=== PATIENT | female | born 1960 | race Caucasian/White ===

== ENCOUNTER 2017-05-11 09:36 | Emergency (ER) | payer OTHER ==
[~2017-05-11] VITALS: Ht 157.5 cm; Wt 85.9 kg
[~2017-05-11 09:36] MED LIST: PRAV10TA39 PO
[2017-05-11 11:15] VITALS: BP 106/82
[2017-05-11] MEDS ORDERED: AMOXICILLIN TRIHYDRATE 250 MG CAPSULE PO ONE (11:30)
== END 2017-05-11 11:37 | disposition home or self-care (01) ==
LOC: EMS 09:38
DX: H66.92 Otitis media, unspecified, left ear (principal); R42 Dizziness and giddiness; E78.00 Pure hypercholesterolemia, unspecified
CPT/HCPCS: 99283

== ENCOUNTER 2017-10-04 12:08 | Emergency (ER) | payer OTHER ==
[~2017-10-04] VITALS: Ht 157.5 cm; Wt 87.7 kg
[2017-10-04] MEDS ORDERED: IBUPROFEN 800 MG TABLET PO ONE (17:15)
[2017-10-04] MEDS ORDERED: LIDOCAINE HCL/PF 1% 2 ML VIAL IM ONE (18:15)
[2017-10-04] MEDS ORDERED: CefTRIAXone SODIUM 1 GM/VIAL IM ONE (18:15)
[2017-10-04 19:15] VITALS: BP 124/83
== END 2017-10-04 19:15 | disposition home or self-care (01) ==
LOC: EMS 12:09
DX: L03.011 Cellulitis of right finger (principal); E78.00 Pure hypercholesterolemia, unspecified
CPT/HCPCS: 73130; 96372; 99284; J0696; J3490

== ENCOUNTER 2020-10-23 17:26 | Emergency (ER) | payer OTHER ==
[~2020-10-23] VITALS: Ht 157.5 cm; Wt 72.7 kg
[2020-10-23 17:31] VITALS: BP 136/60
[2020-10-23] MEDS ORDERED: LIDOCAINE 5% TRANSDERMAL PATCH TD ONE (19:45)
== END 2020-10-23 20:19 | disposition home or self-care (01) ==
LOC: EMS 17:28
DX: M62.838 Other muscle spasm (principal); E78.00 Pure hypercholesterolemia, unspecified
CPT/HCPCS: 99283

== ENCOUNTER 2021-04-02 18:17 | Emergency (ER) | payer OTHER ==
[~2021-04-02] VITALS: Ht 160 cm; Wt 72.7 kg
[2021-04-02] MEDS ORDERED: MECL-186 PO (18:21)
[2021-04-02 20:03] VITALS: BP 138/71
== END 2021-04-02 21:06 | disposition home or self-care (01) ==
LOC: EMS 18:17
DX: H66.92 Otitis media, unspecified, left ear (principal); M62.838 Other muscle spasm
CPT/HCPCS: 99283

== ENCOUNTER 2021-04-29 17:38 | Emergency (ER) | payer OTHER ==
[~2021-04-29] VITALS: Ht 160 cm; Wt 95.5 kg
[~2021-04-29 17:38] MED LIST changes: +MECL-186 PO
[2021-04-29] MEDS ORDERED: ATOR20TA86 PO (18:11)
[2021-04-29 19:40] VITALS: BP 137/62
== END 2021-04-29 19:54 | disposition home or self-care (01) ==
LOC: EMS 17:48
DX: S93.401A Sprain of unspecified ligament of right ankle, initial encounter (principal); E78.00 Pure hypercholesterolemia, unspecified; X50.9XXA Other and unspecified overexertion or strenuous movements or postures, initial encounter; Y93.89 Activity, other specified; Y92.89 Other specified places as the place of occurrence of the external cause; Y99.8 Other external cause status
CPT/HCPCS: 29515; 99283

== ENCOUNTER 2021-07-29 16:47 | Emergency (ER) | payer OTHER ==
[~2021-07-29] VITALS: Ht 157.5 cm; Wt 81.8 kg
[~2021-07-29 16:47] MED LIST changes: +ATOR20TA86 PO; -MECL-186 PO; -PRAV10TA39 PO
[2021-07-29 16:57] VITALS: BP 137/78
[2021-07-29] MEDS ORDERED: FLUTICASONE PROPIONATE 50 MCG/SPRAY 16 GM NASAL SPRAY NASAL ONE (18:00)
== END 2021-07-29 18:55 | disposition home or self-care (01) ==
LOC: EMS 16:49
DX: H69.82 Other specified disorders of Eustachian tube, left ear (principal); H92.02 Otalgia, left ear; R42 Dizziness and giddiness; E78.00 Pure hypercholesterolemia, unspecified
CPT/HCPCS: 99282; 99283

== ENCOUNTER 2021-11-12 09:19 | Emergency (ER) | payer OTHER ==
[~2021-11-12] VITALS: Ht 162.6 cm; Wt 63.6 kg
[2021-11-12 14:41] VITALS: BP 141/75
== END 2021-11-12 15:15 | disposition home or self-care (01) ==
LOC: EMS 09:21
DX: S13.4XXA Sprain of ligaments of cervical spine, initial encounter (principal); S20.211A Contusion of right front wall of thorax, initial encounter; E78.00 Pure hypercholesterolemia, unspecified; V49.9XXA Car occupant (driver) (passenger) injured in unspecified traffic accident, initial encounter; Y93.89 Activity, other specified; Y92.89 Other specified places as the place of occurrence of the external cause; Y99.8 Other external cause status
CPT/HCPCS: 71045; 72052; 72100; 99284

== ENCOUNTER 2022-05-08 08:49 | Emergency (ER) | payer OTHER ==
[~2022-05-08] VITALS: Ht 162.6 cm; Wt 86.4 kg
[2022-05-08] MEDS ORDERED: ACETAMINOPHEN 500 MG TABLET PO ONE (09:15)
[2022-05-08] MEDS ORDERED: MECLIZINE HCL 25 MG TABLET PO ONE (09:15)
[2022-05-08 09:17] LABS: BASOPHILS % (AUTO) 0.7 % (0.0-2.0); EOSINOPHILS % (AUTO) 4.4 % (1.0-6.0); HEMATOCRIT 39.4 % (36-46); HEMOGLOBIN 12.9 g/dL (12.0-16.0); LYMPHOCYTES # (AUTO) 0.7 K/uL (1.0-4.8); LYMPHOCYTES % (AUTO) 23.4 % (22.0-44.0); MEAN CORPUSCULAR HEMOGLOBIN 29.9 pg (26.0-34.0); MEAN CORPUSCULAR HGB CONC 32.7 G/dL (31.0-37.0); MEAN CORPUSCULAR VOLUME 91 fL (80-100); MONOCYTES # (AUTO) 0.3 K/uL (0.1-1.0); MONOCYTES % (AUTO) 9.3 % (2.0-9.0); NEUTROPHILS % (AUTO) 62.2 % (40.0-70.0); PLATELET COUNT (AUTO) 272 K/uL (150-450); RED BLOOD CELL COUNT(AUTO) 4.32 MIL/uL (4.00-5.20); RED CELL DISTRIBUTION WIDTH 13.5 % (11.5-14.5)
[2022-05-08 09:27] LABS: ANION GAP 4 mmol/L (8-16); CALCIUM, TOTAL 9.8 mg/dL (8.8-10.5); CARBON DIOXIDE 33 mmol/L (22-29); CHLORIDE 106 mmol/L (98-107); CREATININE 0.67 mg/dL (0.60-1.30); GLUCOSE,RANDOM 82 mg/dL (70-110); POTASSIUM 3.9 mmol/L (3.5-5.1); SODIUM SERUM 143 mmol/L (136-145); UREA NITROGEN, BLOOD 12 mg/dL (7-18)
[2022-05-08 09:28] LABS: GLOMERULAR FILTR. RATE CALC > 60 mL/min (>60)
[2022-05-08 09:32] LABS: ALANINE AMINOTRANSFERASE 26 U/L (12-78); ALBUMIN 3.7 g/dL (3.4-5.0); ALKALINE PHOSPHATASE 53 U/L (46-116); ASPARTATE AMINOTRANSFERASE 20 U/L (15-37); BILIRUBIN,TOTAL 0.3 mg/dL (0.1-1.0); PHOSPHORUS 3.2 mg/dL (2.5-4.9); TOTAL PROTEIN, SERUM 7.6 g/dL (6.4-8.2)
[2022-05-08 10:04] LABS: COVID AG,FIA SOURCE NASOPHARYNGEAL
[2022-05-08 10:29] LABS: INFLUENZA TYPE A NEGATIVE FOR TYPE A (NEGATIVE); INFLUENZA TYPE B NEGATIVE FOR TYPE B (NEGATIVE)
[2022-05-08 11:02] VITALS: BP 120/71
[2022-05-08] MEDS ORDERED: MECL-134 PO (11:25)
== END 2022-05-08 12:56 | disposition home or self-care (01) ==
LOC: EMS 08:53
DX: R42 Dizziness and giddiness (principal); Z20.822 Contact with and (suspected) exposure to COVID-19; E78.00 Pure hypercholesterolemia, unspecified
CPT/HCPCS: 80053; 83735; 84100; 84484; 85025; 87430; 87804; 93005; 99284

== ENCOUNTER 2022-10-14 11:55 | Emergency (ER) | payer OTHER ==
[~2022-10-14] VITALS: Ht 154.9 cm; Wt 81.8 kg
[~2022-10-14 11:55] MED LIST changes: +MECL-134 PO
[2022-10-14 13:10] LABS: COVID AG,FIA SOURCE NASOPHARYNGEAL
[2022-10-14 13:16] LABS: APPEARANCE,URINE CLEAR (CLEAR); BILIRUBIN,URINE NEGATIVE (NEGATIVE); GLUCOSE, URINE (UA) NEGATIVE (NEGATIVE); KETONES,URINE NEGATIVE (NEGATIVE); LEUKOCYTE ESTERASE ,URINE NEGATIVE (NEGATIVE); NITRATE,URINE NEGATIVE (NEGATIVE); OCCULT BLOOD,URINE NEGATIVE (NEGATIVE); PROTEIN,URINE NEGATIVE (NEGATIVE); SPECIFIC GRAVITIY, URINE 1.004 (1.003-1.030); UROBILINOGEN,URINE <=1.0 mg/dL (<=1.0)
[2022-10-14 13:34] LABS: INFLUENZA TYPE A NEGATIVE FOR TYPE A (NEGATIVE); INFLUENZA TYPE B NEGATIVE FOR TYPE B (NEGATIVE)
[2022-10-14 13:36] LABS: BACTERIA,URINE Moderate /HPF (None Seen); RBC,URINE None Seen /HPF (0-2); SQUAMOUS EPITHELIAL CELL,UR Few /LPF (None Seen)
[2022-10-14 13:55] LABS: BASOPHILS % (AUTO) 0.8 % (0.0-2.0); EOSINOPHILS % (AUTO) 3.4 % (1.0-6.0); HEMATOCRIT 38.6 % (36-46); HEMOGLOBIN 12.7 g/dL (12.0-16.0); LYMPHOCYTES # (AUTO) 1.1 K/uL (1.0-4.8); LYMPHOCYTES % (AUTO) 23.6 % (22.0-44.0); MEAN CORPUSCULAR VOLUME 91 fL (80-100); MONOCYTES # (AUTO) 0.4 K/uL (0.1-1.0); MONOCYTES % (AUTO) 8.3 % (2.0-9.0); NEUTROPHILS # (AUTO) 3.1 K/uL (1.8-7.7); NEUTROPHILS % (AUTO) 63.9 % (40.0-70.0); PLATELET COUNT (AUTO) 290 K/uL (150-450); RED BLOOD CELL COUNT(AUTO) 4.23 MIL/uL (4.00-5.20); RED CELL DISTRIBUTION WIDTH 13.6 % (11.5-14.5)
[2022-10-14 14:06] LABS: ANION GAP 2 mmol/L (8-16); CALCIUM, TOTAL 9.3 mg/dL (8.8-10.5); CARBON DIOXIDE 31 mmol/L (22-29); CHLORIDE 105 mmol/L (98-107); CREATININE 0.56 mg/dL (0.60-1.30); GLOMERULAR FILTR. RATE CALC > 60 mL/min (>60); GLUCOSE,RANDOM 86 mg/dL (70-110); POTASSIUM 3.9 mmol/L (3.5-5.1); SODIUM SERUM 138 mmol/L (136-145); UREA NITROGEN, BLOOD 13 mg/dL (7-18)
[2022-10-14 14:11] LABS: ALANINE AMINOTRANSFERASE 24 U/L (12-78); ALKALINE PHOSPHATASE 59 U/L (46-116); ASPARTATE AMINOTRANSFERASE 19 U/L (15-37); BILIRUBIN,TOTAL 0.2 mg/dL (0.1-1.0); LIPASE 109 U/L (73-393); TOTAL PROTEIN, SERUM 7.9 g/dL (6.4-8.2)
[2022-10-14] MEDS ORDERED: NITR-75 PO (15:01)
[2022-10-14] MEDS ORDERED: MECL-134 PO (15:01)
[2022-10-14 15:20] VITALS: BP 130/58
== END 2022-10-14 15:22 | disposition home or self-care (01) ==
LOC: EMS 12:01
DX: N30.90 Cystitis, unspecified without hematuria (principal); R42 Dizziness and giddiness; E78.00 Pure hypercholesterolemia, unspecified; Z20.822 Contact with and (suspected) exposure to COVID-19; Z98.890 Other specified postprocedural states
CPT/HCPCS: 80053; 81001; 83690; 85025; 87086; 87186; 87804; 99283

== ENCOUNTER 2022-12-20 13:36 | Emergency (ER) | payer OTHER ==
[~2022-12-20] VITALS: Ht 160 cm; Wt 86.4 kg
[~2022-12-20 13:36] MED LIST changes: +ATOR20TA PO; -ATOR20TA86 PO; +NITR-75 PO
[2022-12-20 14:45] LABS: GLUCOSE,POINT OF CARE 94 MG/DL (70-110)
[2022-12-20] MEDS ORDERED: MECL-134 PO (15:04)
[2022-12-20] MEDS ORDERED: GUAIFDM PO (15:04)
[2022-12-20] MEDS ORDERED: PSEU-191 PO (15:04)
[2022-12-20] MEDS ORDERED: IBUP-1554 PO (15:04)
[2022-12-20 15:15] VITALS: BP 136/64
== END 2022-12-20 15:37 | disposition home or self-care (01) ==
LOC: EMS 13:38
DX: J06.9 Acute upper respiratory infection, unspecified (principal); J32.9 Chronic sinusitis, unspecified; E78.00 Pure hypercholesterolemia, unspecified; Z98.890 Other specified postprocedural states
CPT/HCPCS: 82962; 99282

== ENCOUNTER 2023-03-14 16:37 | Emergency (ER) | payer OTHER ==
[~2023-03-14] VITALS: Ht 160 cm; Wt 90.0 kg
[~2023-03-14 16:37] MED LIST changes: +GUAIFDM PO; +IBUP-1554 PO; -NITR-75 PO; +PSEU-191 PO
[2023-03-14] MEDS ORDERED: IBUPROFEN 600 MG TABLET PO ONE (18:45)
[2023-03-14 18:51] LABS: APPEARANCE,URINE CLEAR (CLEAR); BILIRUBIN,URINE NEGATIVE (NEGATIVE); GLUCOSE, URINE (UA) NEGATIVE (NEGATIVE); KETONES,URINE NEGATIVE (NEGATIVE); LEUKOCYTE ESTERASE ,URINE NEGATIVE (NEGATIVE); NITRATE,URINE NEGATIVE (NEGATIVE); OCCULT BLOOD,URINE NEGATIVE (NEGATIVE); PROTEIN,URINE TRACE mg/dL (NEGATIVE); SPECIFIC GRAVITIY, URINE 1.035 (1.003-1.030); UROBILINOGEN,URINE <=1.0 mg/dL (<=1.0)
[2023-03-14 19:00] LABS: BASOPHILS % (AUTO) 0.6 % (0.0-2.0); HEMATOCRIT 36.8 % (36-46); HEMOGLOBIN 12.2 g/dL (12.0-16.0); LYMPHOCYTES # (AUTO) 1.2 K/uL (1.0-4.8); LYMPHOCYTES % (AUTO) 23.4 % (22.0-44.0); MEAN CORPUSCULAR HEMOGLOBIN 30.4 pg (26.0-34.0); MEAN CORPUSCULAR HGB CONC 33.2 G/dL (31.0-37.0); MEAN CORPUSCULAR VOLUME 91 fL (80-100); MONOCYTES # (AUTO) 0.5 K/uL (0.1-1.0); MONOCYTES % (AUTO) 10.2 % (2.0-9.0); NEUTROPHILS # (AUTO) 3.1 K/uL (1.8-7.7); NEUTROPHILS % (AUTO) 61.8 % (40.0-70.0); PLATELET COUNT (AUTO) 272 K/uL (150-450); RED BLOOD CELL COUNT(AUTO) 4.03 MIL/uL (4.00-5.20); RED CELL DISTRIBUTION WIDTH 13.5 % (11.5-14.5)
[2023-03-14 19:13] LABS: ANION GAP 5 mmol/L (8-16); CALCIUM, TOTAL 8.8 mg/dL (8.8-10.5); CARBON DIOXIDE 30 mmol/L (22-29); CHLORIDE 105 mmol/L (98-107); CREATININE 0.84 mg/dL (0.60-1.30); GLOMERULAR FILTR. RATE CALC > 60 mL/min (>60); GLUCOSE,RANDOM 101 mg/dL (70-110); POTASSIUM 4.3 mmol/L (3.5-5.1); SODIUM SERUM 139 mmol/L (136-145)
[2023-03-14 19:30] LABS: RBC,URINE None Seen /HPF (0-2)
[2023-03-14 19:31] LABS: BACTERIA,URINE None Seen /HPF (None Seen); WBC,URINE 0-2 /HPF (0-5)
[2023-03-14] MEDS ORDERED: CYCL-448 PO (19:36)
[2023-03-14] MEDS ORDERED: IBUP-1554 PO (19:36)
[2023-03-14 20:25] VITALS: BP 129/63; PULSE 88; RESP 16; TEMP 97.3
== END 2023-03-14 20:30 | disposition home or self-care (01) ==
LOC: EMS 16:38
DX: R10.9 Unspecified abdominal pain (principal); E78.00 Pure hypercholesterolemia, unspecified; R55 Syncope and collapse; Z98.890 Other specified postprocedural states
CPT/HCPCS: 80048; 81001; 85025; 99283

== ENCOUNTER 2023-04-10 15:15 | Emergency (ER) | payer OTHER ==
[~2023-04-10] VITALS: Ht 157.5 cm; Wt 87.7 kg
[~2023-04-10 15:15] MED LIST changes: +CYCL-448 PO
[2023-04-10 15:19] VITALS: BP 129/56; PULSE 77; RESP 14; TEMP 98.7
[2023-04-10] MEDS ORDERED: ACETAMINOPHEN 500 MG TABLET PO ONE (16:15)
== END 2023-04-10 17:25 | disposition home or self-care (01) ==
LOC: EMS 17:14
DX: S93.401A Sprain of unspecified ligament of right ankle, initial encounter (principal); E78.00 Pure hypercholesterolemia, unspecified; Z98.890 Other specified postprocedural states; X58.XXXA Exposure to other specified factors, initial encounter; Y93.89 Activity, other specified; Y92.89 Other specified places as the place of occurrence of the external cause; Y99.8 Other external cause status
CPT/HCPCS: 99283

== ENCOUNTER 2023-07-05 16:31 | Emergency (ER) | payer OTHER ==
[~2023-07-05] VITALS: Ht 157.5 cm; Wt 86.4 kg
[~2023-07-05 16:31] MED LIST changes: -CYCL-448 PO; -GUAIFDM PO; -IBUP-1554 PO; -MECL-134 PO; -PSEU-191 PO
[2023-07-05 16:36] VITALS: TEMP 98.3
[2023-07-05] MEDS ORDERED: LIDOCAINE 5% TRANSDERMAL PATCH TD ONE (17:45)
[2023-07-05] MEDS ORDERED: IBUPROFEN 600 MG TABLET PO ONE (17:45)
[2023-07-05] MEDS ORDERED: ACETAMINOPHEN 500 MG TABLET PO ONE (17:45)
[2023-07-05 17:58] LABS: APPEARANCE,URINE CLEAR (CLEAR); BILIRUBIN,URINE NEGATIVE (NEGATIVE); COLOR,URINE COLORLESS (YELLOW); GLUCOSE, URINE (UA) NEGATIVE (NEGATIVE); KETONES,URINE NEGATIVE (NEGATIVE); LEUKOCYTE ESTERASE ,URINE NEGATIVE (NEGATIVE); NITRATE,URINE NEGATIVE (NEGATIVE); OCCULT BLOOD,URINE NEGATIVE (NEGATIVE); PROTEIN,URINE NEGATIVE (NEGATIVE); SPECIFIC GRAVITIY, URINE 1.004 (1.003-1.030); UROBILINOGEN,URINE <=1.0 mg/dL (<=1.0)
[2023-07-05] MEDS ORDERED: LIDO700A15 TP (18:21)
[2023-07-05] MEDS ORDERED: ACET-3385 PO (18:21)
[2023-07-05] MEDS ORDERED: MECL-302 PO (18:21)
[2023-07-05] MEDS ORDERED: IBUP-1492 PO (18:21)
[2023-07-05 18:30] VITALS: BP 135/60; PULSE 80; RESP 12
== END 2023-07-05 18:39 | disposition home or self-care (01) ==
LOC: EMS 16:34
DX: S39.012A Strain of muscle, fascia and tendon of lower back, initial encounter (principal); E78.00 Pure hypercholesterolemia, unspecified; Z98.890 Other specified postprocedural states; X58.XXXA Exposure to other specified factors, initial encounter; Y93.89 Activity, other specified; Y92.89 Other specified places as the place of occurrence of the external cause; Y99.8 Other external cause status
CPT/HCPCS: 81003; 99284

== ENCOUNTER 2023-11-05 13:19 | Emergency (ER) | payer OTHER ==
[~2023-11-05] VITALS: Ht 160 cm; Wt 90.0 kg
[~2023-11-05 13:19] MED LIST changes: +ACET-3385 PO; +IBUP-1492 PO; +LIDO700A15 TP; +MECL-302 PO
[2023-11-05 13:22] VITALS: BP 119/56; PULSE 70; RESP 16; TEMP 99.5
[2023-11-05] MEDS ORDERED: OMEP20CA12 PO (13:25)
[2023-11-05] MEDS ORDERED: PRAV20TA4 PO (13:25)
[2023-11-05 13:43] LABS: APPEARANCE,URINE CLEAR (CLEAR); BILIRUBIN,URINE NEGATIVE (NEGATIVE); COLOR,URINE YELLOW (YELLOW); GLUCOSE, URINE (UA) NEGATIVE (NEGATIVE); KETONES,URINE NEGATIVE (NEGATIVE); LEUKOCYTE ESTERASE ,URINE TRACE (NEGATIVE); NITRATE,URINE NEGATIVE (NEGATIVE); OCCULT BLOOD,URINE NEGATIVE (NEGATIVE); PROTEIN,URINE TRACE mg/dL (NEGATIVE); SPECIFIC GRAVITIY, URINE 1.029 (1.003-1.030); UROBILINOGEN,URINE <=1.0 mg/dL (<=1.0)
[2023-11-05 14:00] LABS: BACTERIA,URINE None Seen /HPF (None Seen); RBC,URINE None Seen /HPF (0-2); SQUAMOUS EPITHELIAL CELL,UR Rare /LPF (None Seen); WBC,URINE 0-2 /HPF (0-5)
== END 2023-11-05 15:29 | disposition left against medical advice (07) ==
LOC: EMS 13:23
DX: R30.0 Dysuria (principal); M54.50 Low back pain, unspecified; Z53.21 Procedure and treatment not carried out due to patient leaving prior to being seen by health care provider
CPT/HCPCS: 81001; 99281; 99283

== ENCOUNTER 2024-07-05 15:02 | Emergency (ER) | payer MEDICARE, OTHER ==
[~2024-07-05] VITALS: Ht 160 cm; Wt 86.4 kg
[~2024-07-05 15:02] MED LIST changes: -ACET-3385 PO; -ATOR20TA PO; -IBUP-1492 PO; -LIDO700A15 TP; -MECL-302 PO; +OMEP20CA12 PO; +PRAV20TA4 PO
[2024-07-05 15:20] VITALS: TEMP 98.6
[2024-07-05 17:23] LABS: APPEARANCE,URINE CLEAR (CLEAR); BILIRUBIN,URINE NEGATIVE (NEGATIVE); COLOR,URINE COLORLESS (YELLOW); GLUCOSE, URINE (UA) NEGATIVE (NEGATIVE); KETONES,URINE NEGATIVE (NEGATIVE); LEUKOCYTE ESTERASE ,URINE TRACE (NEGATIVE); NITRATE,URINE NEGATIVE (NEGATIVE); OCCULT BLOOD,URINE NEGATIVE (NEGATIVE); PROTEIN,URINE NEGATIVE (NEGATIVE); SPECIFIC GRAVITIY, URINE 1.005 (1.003-1.030); UROBILINOGEN,URINE <=1.0 mg/dL (<=1.0)
[2024-07-05 17:45] LABS: BASOPHILS % (AUTO) 0.5 % (0.0-2.0); EOSINOPHILS % (AUTO) 0.9 % (1.0-6.0); HEMATOCRIT 39.5 % (36-46); LYMPHOCYTES # (AUTO) 1.1 K/uL (1.0-4.8); LYMPHOCYTES % (AUTO) 19.3 % (22.0-44.0); MEAN CORPUSCULAR HEMOGLOBIN 29.9 pg (26.0-34.0); MEAN CORPUSCULAR HGB CONC 32.9 G/dL (31.0-37.0); MEAN CORPUSCULAR VOLUME 91 fL (80-100); MONOCYTES # (AUTO) 0.5 K/uL (0.1-1.0); MONOCYTES % (AUTO) 9.7 % (2.0-9.0); NEUTROPHILS # (AUTO) 3.9 K/uL (1.8-7.7); NEUTROPHILS % (AUTO) 69.6 % (40.0-70.0); PLATELET COUNT (AUTO) 340 K/uL (150-450); RED BLOOD CELL COUNT(AUTO) 4.35 MIL/uL (4.00-5.20); WHITE BLOOD COUNT (AUTO) 5.6 K/uL (4.5-11.0)
[2024-07-05 17:55] LABS: ANION GAP 5 mmol/L (8-16); CALCIUM, TOTAL 9.6 mg/dL (8.8-10.5); CARBON DIOXIDE 30 mmol/L (22-29); CHLORIDE 104 mmol/L (98-107); CREATININE 0.69 mg/dL (0.60-1.30); GLOMERULAR FILTR. RATE CALC > 60 mL/min (>60); GLUCOSE,RANDOM 97 mg/dL (70-110); POTASSIUM 4.5 mmol/L (3.5-5.1); SODIUM SERUM 139 mmol/L (136-145); UREA NITROGEN, BLOOD 17 mg/dL (7-18)
[2024-07-05 17:59] LABS: BACTERIA,URINE Rare /HPF (None Seen); RBC,URINE 0-2 /HPF (0-2); WBC,URINE 0-2 /HPF (0-5)
[2024-07-05 18:05] LABS: B-TYPE NATRIURETIC PEPTIDE 17 pg/mL (0-100)
[2024-07-05 18:19] LABS: TROPONIN I-HIGH SENSITIVITY Less Than 4 ng/L (<51)
[2024-07-05] MEDS ORDERED: MECL-134 PO (19:34)
[2024-07-05] MEDS ORDERED: AMOX250C4 PO (19:34)
[2024-07-05 19:50] VITALS: BP 159/78; PULSE 86; RESP 16; O2SAT 98
== END 2024-07-05 19:51 | disposition home or self-care (01) ==
LOC: EMS 15:03
DX: R42 Dizziness and giddiness (principal); E78.00 Pure hypercholesterolemia, unspecified
CPT/HCPCS: 71045; 80048; 81001; 83880; 84484; 85025; 93005; 99285; 36415-L1; 36415-TC

== ENCOUNTER 2024-12-04 13:18 | Emergency (ER) | payer MEDICARE, OTHER ==
[~2024-12-04] VITALS: Ht 160 cm; Wt 87.3 kg
[~2024-12-04 13:18] MED LIST changes: +AMOX250C4 PO; +MECL-134 PO; -OMEP20CA12 PO
[2024-12-04 13:20] VITALS: BP 125/55; PULSE 83; RESP 18; TEMP 97.8; O2SAT 99
[2024-12-04] MEDS: METHOCARBAMOL 500 MG TABLET PO ONE (14:03)
[2024-12-04] MEDS: IBUPROFEN 400 MG TABLET PO ONE (14:03)
[2024-12-04] MEDS: ACETAMINOPHEN 500 MG TABLET PO ONE (14:03)
[2024-12-04] MEDS: LIDOCAINE 5% TRANSDERMAL PATCH TD ONE (14:04)
[2024-12-04] MEDS ORDERED: LIDO700A15 TP (14:37)
[2024-12-04] MEDS ORDERED: METH-812 PO (14:37)
== END 2024-12-04 15:12 | disposition home or self-care (01) ==
LOC: EMS 13:27
DX: S39.012A Strain of muscle, fascia and tendon of lower back, initial encounter (principal); M79.671 Pain in right foot; E78.00 Pure hypercholesterolemia, unspecified; X58.XXXA Exposure to other specified factors, initial encounter; Y93.89 Activity, other specified; Y92.89 Other specified places as the place of occurrence of the external cause; Y99.8 Other external cause status
CPT/HCPCS: 99284; 73630-TC; Z7502; Z7610